=== PATIENT | male | born 1990 | race African-American/Black ===

== ENCOUNTER 2017-08-19 14:35 | Outpatient (CLI) | payer OTHER ==
--- NOTE | 2017-08-19 17:09 | RAD ---
LEFT HAND THREE VIEWS: History: Pain. Comparison: None. FINDINGS: There is irregularity involving the articular surface of the proximal aspect of the middle phalanx of the fourth digit. Correlate clinically. Remaining osseous structures are unremarkable. Joint space i s preserved. IMPRESSION: Irregularity involving the articular surface of the proximal aspect of the middle phalanx of the four th digit. POS: [facility]
== END 2017-08-19 14:36 | disposition home or self-care (01) ==
LOC: MADRAD 14:35
PROVIDERS: ATTEND Family Medicine
DX: M79.642 Pain in left hand (principal)

== ENCOUNTER 2017-10-23 16:23 | Outpatient (CLI) | payer OTHER ==
--- NOTE | 2017-10-23 16:45 | RAD ---
THREE VIEWS LEFT HAND: Comparison: 08-19-17 History: 4th digit injury two months ago with pain. FINDINGS: Three views of the left hand shows a fracture of the middle phalanx of the ring finger. This involves approximately 30% of the joint space. This fracture is displaced compared to the prior examination a nd there is joint space narrowing of the PIP joint consistent with post-traumatic osteoarthritis. Braden rounding soft tissue swelling is seen. 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 POS: [facility]
== END 2017-10-23 16:24 | disposition home or self-care (01) ==
LOC: MADRAD 16:23
PROVIDERS: ATTEND Family Medicine
DX: M79.645 Pain in left finger(s) (principal); M19.142 Post-traumatic osteoarthritis, left hand; S62.625K Displaced fracture of middle phalanx of left ring finger, subsequent encounter for fracture with nonunion

== ENCOUNTER 2018-06-24 13:24 | Outpatient (CLI) | payer OTHER ==
--- NOTE | 2018-06-24 14:26 | RAD ---
THREE VIEWS RIGHT HAND: Date: 06-24-18 History: Right hand pain after injury. Swelling and pain to fourth digit. FINDINGS: There is a mildly comminuted fracture involving the base of the middle phalanx of the right ring fing er with mild separation of fracture fragments. This fracture does extend into the proximal interphala ngeal joint and there is intraarticular gap present. There is mild apex dorsal angulation of fracture fragments. There is subcutaneous soft tissue swelling seen about the right ring finger. No additiona l acute fracture or dislocation is seen. There is mild deformity of the right fifth metacarpal. No ot her findings. IMPRESSION: 1. Mildly comminuted fracture involving the base of the proximal phalanx right ring finger. This frac ture does extend into the proximal interphalangeal joint with mild intraarticular gap. Orthopedic con sultation is recommended. 2. Remote fracture and deformity of the right fifth metacarpal. 3. Subcutaneous soft tissue swelling about the right ring finger. POS: [facility]
== END 2018-06-24 13:25 | disposition home or self-care (01) ==
LOC: MADRAD 13:24
PROVIDERS: ATTEND Family Medicine
DX: M79.641 Pain in right hand (principal); S62.614A Displaced fracture of proximal phalanx of right ring finger, initial encounter for closed fracture; M79.89 Other specified soft tissue disorders

== ENCOUNTER 2019-09-20 20:38 | Emergency (ER) | payer OTHER ==
[2019-09-20] MEDS ORDERED: Acetaminophen 500 MG TAB ONE (21:27)
[2019-09-20] MEDS ORDERED: Ibuprofen 800 MG TAB ONE (21:27)
--- NOTE | 2019-09-20 21:50 | RAD ---
RIGHT HAND THREE VIEWS: History: Hand injury. Comparison: 06-24-18 FINDINGS: Old fractures of the fifth metacarpal and base of the middle phalanx of the ring finger are noted. Th ere is deformity to the distal end of the fourth metacarpal although this was not present on the prio r examination I would still favor that this is not acute. Clinical correlation as to the exact area o f patient's pain. IMPRESSION: Old fractures of the fifth metacarpal and middle phalanx of ring finger with a probable older fractur e of the fourth metacarpal head and neck region. Clinical correlation as to any pain in the region of the distal fourth metacarpal. POS: [facility]
== END 2019-09-20 21:48 ==
LOC: MADERS 20:38
DX: S60.041A Contusion of right ring finger without damage to nail, initial encounter (principal); W22.8XXA Striking against or struck by other objects, initial encounter; F17.210 Nicotine dependence, cigarettes, uncomplicated

== ENCOUNTER 2019-10-21 19:06 | Emergency (ER) | payer OTHER ==
[2019-10-21] MEDS ORDERED: Iopamidol 370 76% 100 ML VIAL ONE (19:23)
[2019-10-21] MEDS ORDERED: Ketorolac Tromethamine 30 MG/ML VIAL ONE (19:27)
--- NOTE | 2019-10-21 20:47 | CT ---
CT ABDOMEN AND PELVIS WITH CONTRAST: 10/21/19 HISTORY: Slipped and fell in the shower. COMPARISON: None. FINDINGS: Lung bases are relatively clear. No pericardial effusion. The liver, spleen, pancreas, kidneys, adren al glands are without acute injury. The aortoiliac contour is nonaneurysmal. Lumbar spine is without acute fracture. Sacrum is without acute fracture. The visualized lower ribs a re intact. Lumbar spine transverse processes are intact. The obturator rings are intact. Femoral heads and necks are intact. Muscles are intact. Soft tissues are intact. No mesenteric hematoma. No free intraperitoneal gas or f luid. IMPRESSION: No acute traumatic abnormality within the abdomen or pelvis. POS: [facility]
== END 2019-10-21 20:59 ==
LOC: MADERS 19:06
DX: S33.5XXA Sprain of ligaments of lumbar spine, initial encounter (principal); F17.210 Nicotine dependence, cigarettes, uncomplicated; W18.2XXA Fall in (into) shower or empty bathtub, initial encounter
CPT/HCPCS: 74177; 96374; J1885; Q9967